=== PATIENT | male | born 1960 | race Two or more races ===

== ENCOUNTER 2016-12-13 20:53 | Emergency (ER) | payer SELFPAY ==
[~2016-12-13] VITALS: Ht 167.6 cm; Wt 89.4 kg
[~2016-12-13 20:53] MED LIST: CEPH250C PO
[2016-12-13] MEDS ORDERED: MECLIZINE HCL 12.5 MG TABLET. PO ONE (21:30)
[2016-12-13] MEDS ORDERED: METOCLOPRAMIDE HCL 10 MG/2 ML VIAL. IV ONE (21:30)
[2016-12-13 22:01] LABS: BASO # 0.1 x10^3/uL (0.0-0.2); BASO % 1 % (0-3); EOS % 13 % (0-3); HEMATOCRIT 42.5 % (39.0-53.0); HEMOGLOBIN 14.4 g/dL (13.0-17.5); LYMPH # 3.6 x10^3/uL (1.0-4.8); LYMPH % 32 % (24-48); MEAN CORPUSCULAR HEMOGLOBIN 31 pg (25-35); MEAN CORPUSCULAR HGB CONC 34 g/dL (31-37); MEAN CORPUSCULAR VOLUME 92 fL (79-100); MONO % 5 % (0-9); NEUT % 50 % (31-73); PLATELET COUNT 230 x10^3/uL (140-400); RED BLOOD COUNT 4.64 x10^6/uL (4.30-5.70); RED CELL DISTRIBUTION WIDTH 14.2 % (11.5-14.5); WHITE BLOOD COUNT 11.3 x10^3/uL (4.0-11.0)
[2016-12-13 22:25] LABS: CREATININE 1.3 mg/dL (0.7-1.3); GFR 56.7; POTASSIUM 4.2 mmol/L (3.5-5.1)
[2016-12-13 22:30] LABS: ALBUMIN 3.6 g/dL (3.4-5.0); ALBUMIN/GLOBULIN RATIO 0.8 (1.0-1.7); TOTAL BILIRUBIN 0.4 mg/dL (0.2-1.0)
[2016-12-13 22:31] LABS: % EOS 13 % (0-5); PLT ESTIMATE ADEQUATE (ADEQUATE)
--- NOTE | 2016-12-13 22:51 | PHYS DOC ---
Past Medical History Past Medical History: Cancer, Other Additional Past Medical Histor: RENAL CANCER Past Surgical History: Cholecystectomy, Other Additional Past Surgical Histo: L4-L5, R. KIDNEY REMOVED Alcohol Use: Rarely Drug Use: None Adult General Chief Complaint Chief Complaint: DIZZY/LIGHT HEADED HPI HPI Patient is a 56 year old male who presents with dizziness. Patient reports six- day history of spinning sensation which worsens with movements, intermittent. Reports today symptoms became much more severe at about 1500. Also experiencing ataxia with ambulation. Feels nauseated but no vomiting. Denies headache, chest pain, shortness of breath, extremity numbness or weakness. States he had a dental abscess at time of symptom onset, at that time was seen at the [facility] in [place] and given prescription for amoxicillin. He did have labs performed and underwent noncontrast CT of his head which she reports was normal; apparently at that time they thought his symptoms might be related to the dental infection. He has become increasingly symptomatic despite taking antibiotics. He has no previous history of similar symptoms. History of renal cancer s/p resection of a kidney. Does not currently have a PCP. Review of Systems Review of Systems Constitutional: Denies fever or chills Eyes: Denies change in visual acuity HENT: Denies nasal congestion or sore throat Respiratory: Denies cough or shortness of breath Cardiovascular: Denies chest pain or edema GI: Reports nausea, denies abdominal pain, vomiting Musculoskeletal: Denies back pain or joint pain Integument: Denies rash or skin lesions Neurologic: Reports vertigo. Denies headache, focal weakness or sensory changes Current Medications Current Medications Current Medications Medications (Trade) Dose Ordered Sig/Kole Start Time Stop Time Status Last Admin Dose Admin Meclizine HCl (Antivert) 12.5 mg 1X ONCE 12/13/16 21:30 12/13/16 21:31 DC 12/13/16 21:48 12.5 MG Metoclopramide HCl (Reglan) 10 mg 1X ONCE 12/13/16 21:30 12/13/16 21:31 DC 12/13/16 21:48 10 MG Allergies Allergies Allergies Coded Allergies Type Severity Reaction Last Updated Verified Iodinated Contrast Media - Oral and Allergy Severe ANAPHYLAXIS 12/13/16 Yes Physical Exam Physical Exam Constitutional: Obese, no acute distress, non-toxic appearance. HENT: Normocephalic, atraumatic, bilateral external ears normal, TMs normal bilaterally, oropharynx moist, nose normal. Eyes: PERRLA, EOMI, conjunctiva normal, no discharge. Neck: supple, no stridor. No carotid bruit, no meningismus Cardiovascular: RRR, no murmurs, no edema. Lungs & Thorax: LCTAB, no wheezing, no respiratory distress. Abdomen: soft, nontender, nondistended. Skin: Warm, dry, no erythema, no rash. Back: No tenderness. Extremities: No tenderness, no edema. Neurologic: Alert and oriented X 3, cranial nerves II through XII grossly intact , symmetric strength and sensation upper and lower extremities, no focal deficits noted. Psychologic: Affect normal, judgement normal, mood normal. Current Patient Data Vital Signs Vital Signs Date Time Temp Pulse Resp B/P (MAP) Pulse Ox O2 Delivery O2 Flow Rate FiO2 12/14/16 01:30 86 140/88 (105) 94 Room Air 12/13/16 21:10 98.1 16 98.1 Lab Values Laboratory Tests Test 12/13/16 21:52 White Blood Count 11.3 x10^3/uL (4.0-11.0) H Red Blood Count 4.64 x10^6/uL (4.30-5.70) Hemoglobin 14.4 g/dL (13.0-17.5) Hematocrit 42.5 % (39.0-53.0) Mean Corpuscular Volume 92 fL (79-100) Mean Corpuscular Hemoglobin 31 pg (25-35) Mean Corpuscular Hemoglobin Concent 34 g/dL (31-37) Red Cell Distribution Width 14.2 % (11.5-14.5) Platelet Count 230 x10^3/uL (140-400) Neutrophils (%) (Auto) 50 % (31-73) Lymphocytes (%) (Auto) 32 % (24-48) Monocytes (%) (Auto) 5 % (0-9) Eosinophils (%) (Auto) 13 % (0-3) H Basophils (%) (Auto) 1 % (0-3) Neutrophils # (Auto) 5.6 x10^3uL (1.8-7.7) Lymphocytes # (Auto) 3.6 x10^3/uL (1.0-4.8) Monocytes # (Auto) 0.6 x10^3/uL (0.0-1.1) Eosinophils # (Auto) 1.4 x10^3/uL (0.0-0.7) H Basophils # (Auto) 0.1 x10^3/uL (0.0-0.2) Segmented Neutrophils % 56 % (35-66) Lymphocytes % 27 % (24-48) Monocytes % 4 % (0-10) Eosinophils % 13 % (0-5) H Platelet Estimate Adequate (ADEQUATE) Sodium Level 139 mmol/L (136-145) Potassium Level 4.2 mmol/L (3.5-5.1) Chloride Level 104 mmol/L (98-107) Carbon Dioxide Level 26 mmol/L (21-32) Anion Gap 9 (6-14) Blood Urea Nitrogen 19 mg/dL (8-26) Creatinine 1.3 mg/dL (0.7-1.3) Estimated GFR (Cockcroft-Gault) 56.7 BUN/Creatinine Ratio 15 (6-20) Glucose Level 136 mg/dL (70-99) H Calcium Level 9.0 mg/dL (8.5-10.1) Total Bilirubin 0.4 mg/dL (0.2-1.0) Aspartate Amino Transferase (AST) 20 U/L (15-37) Alanine Aminotransferase (ALT) 31 U/L (16-63) Alkaline Phosphatase 102 U/L (46-116) Troponin I Quantitative < 0.017 ng/mL (0.000-0.055) Total Protein 8.0 g/dL (6.4-8.2) Albumin 3.6 g/dL (3.4-5.0) Albumin/Globulin Ratio 0.8 (1.0-1.7) L Laboratory Tests 12/13/16 21:52 Laboratory Tests 12/13/16 21:52 EKG EKG Interpreted by me: Normal sinus rhythm rate 98, no acute ST or T wave changes, normal intervals, no ectopy. [] Radiology/Procedures Radiology/Procedures PROCEDURE: DOPPLER CAROTID BILAT Bilateral carotid Doppler: Reason for examination: Vertigo. The right and left carotid arterial systems were evaluated with grayscale imaging, color-flow imaging and spectral analysis. There is a tortuous left internal and external carotid artery. There is some minimal plaque present bilaterally at the carotid bulb. There is no evidence of hemodynamically significant stenosis. Vertebral flow bilaterally is antegrade. Flow velocities are as follows: Right Left CCA peak 84 67 ICA peak 92 86 ICA/CCA ratio 1.1 1.2 ECA peak 87 36 IMPRESSION: Minimal plaque at the carotid bulbs bilaterally. No evidence of a hemodynamically significant stenosis. Antegrade vertebral flow bilaterally. Electronically signed by: Elham Liz MD (12/14/2016 1:26 AM) DICTATED and SIGNED BY: ELHAM LIZ MD DATE: 12/14/16 012 [] Course & Med Decision Making Course & Med Decision Making Pertinent Labs and Imaging studies reviewed. (See chart for details) The patient presents with vertigo. Also expressing ataxia. Neurologically intact here. Requested records from [facility] which were not faxed during his visit. She preferred not to repeat head CT is just been performed at the other hospital. By his verbal report was normal. As this was repeat visit for vertigo I did want to obtain imaging to rule out abnormality of the posterior circulation. Unfortunately this and the remainder of his visit was very complicated. He has anaphylaxis to iodine contrast and not able to receive even with pretreatment. This prevented us from obtaining CTA of the head and neck. Planned to perform MRI but unfortunately he has medical particles in his eye. Radiologist did not recommend proceeding with MRI. I discussed with the on-call radiologist to recommended the best substitute would be carotid Dopplers. This was obtained here with results as above. There was a significant delay in obtaining the study and read. The patient became frustrated with the obviously much longer wait than anticipated. We discussed findings and further recommendations at length. Overall he is well-appearing, generally low suspicion for serious disease process but as his symptoms are persistent I do think it would be beneficial to evaluate for posterior circulation stroke. This is not possible to complete in the setting due to limitations and imaging. He was offered admission to the hospital for neurology consultation which he declined. He prefers to go home and follow-up as an outpatient. He understands that today's evaluation was incomplete and there is possibility of serious disease process causing his symptoms. Gave prescription for meclizine and instructed to follow up with primary care within 2-3 days, neurology within one week. Return to the emergency department for focal neurologic deficit, severe chest pain or shortness of breath, any otherwise worsening condition. Discharged home in stable condition. [] Dragon Disclaimer Dragon Disclaimer This electronic medical record was generated, in whole or in part, using a voice recognition dictation system. Departure Departure Impression: Primary Impression: Vertigo Disposition: 01 HOME, SELF-CARE Condition: STABLE Referrals: NO PCP (PCP) ASHLEY TA MD, WILLIAM R MD Patient Instructions: Vertigo, [id number] Additional Instructions: You seen in the emergency department today for vertigo or spinning dizzy sensation. Tests here did not show a serious cause of symptoms. As we discussed at length, it would be ideal to do additional imaging but the metal in your eye and your contrast allergy make it difficult to do a good imaging study. Take meclizine as needed for vertigo. Follow-up within 2-[address] Beasley in the primary care clinic, and make an appointment with Dr. Ta in the neurology clinic. Return to the emergency department for severe headache, severe chest pain, difficulty moving arms or legs, any otherwise worsening condition. Scripts Meclizine Hcl (MECLIZINE HCL) 12.5 Mg Tablet 1 TAB PO TID Y for vertigo, #15 TAB Prov: WADE BASSETT MD 12/14/16 WADE BASSETT MD Dec 13, 2016 22:51
--- NOTE | 2016-12-14 01:29 | RAD ---
Bilateral carotid Doppler: Reason for examination: Vertigo. The right and left carotid arterial systems were evaluated with grayscale imaging, color-flow imaging and spectral analysis. There is a tortuous left internal and external carotid artery. There is some minimal plaque present bilaterally at the carotid bulb. There is no evidence of hemodynamically significant stenosis. Vertebral flow bilaterally is antegrade. Flow velocities are as follows: Right Left CCA peak 84 67 ICA peak 92 86 ICA/CCA ratio 1.1 1.2 ECA peak 87 36 IMPRESSION: Minimal plaque at the carotid bulbs bilaterally. No evidence of a hemodynamically significant stenosis. Antegrade vertebral flow bilaterally. Electronically signed by: Elham Downing MD (12/14/2016 1:26 AM)
[2016-12-14 01:30] VITALS: BP 140/88
[2016-12-14] MEDS ORDERED: MECL12.52 PO (01:36)
--- NOTE | 2016-12-14 06:15 | EKG ---
[facility] [address] [place] [address] Test Date: 2016-12-13 Test Time: 21:02:46 Pat Name: MARIETTA VAUGHAN Department: Room: Gender: M Workgroup Leader: : 1960 Requested By: WADE BASSETT Order Number: [id number] Reading MD: Hortencia Guaman Measurements Intervals [place] Rate: 98 P: 38 ME: 174 QRS: 78 QRSD: 92 T: 51 QT: 316 QTc: 405 Interpretive Statements SINUS RHYTHM INCOMPLETE RIGHT BUNDLE BRANCH BLOCK RI6.01 Unconfirmed report No previous ECG available for comparison Electronically Signed On 12-17-2016 22:14:34 CDT by Hortencia Guaman
== END 2016-12-14 01:48 | disposition home or self-care (01) ==
LOC: ER 20:53
DX: R42 Dizziness and giddiness (principal); R27.0 Ataxia, unspecified; R11.0 Nausea; E66.9 Obesity, unspecified; Z68.31 Body mass index [BMI] 31.0-31.9, adult; Z90.49 Acquired absence of other specified parts of digestive tract; Z90.5 Acquired absence of kidney; Z91.041 Radiographic dye allergy status
CPT/HCPCS: 36415; 80053; 84484; 85007; 85027; 93005; 93880; 96374; 99285; J2765; J8597

== ENCOUNTER → 2018-05-23 | Outpatient (CLI) | payer OTHER ==
[~2018-05-23] MED LIST changes: +ASPI81TA50 PO; +MECL12.52 PO
--- NOTE | 2018-05-24 01:41 | PAIN ---
DATE OF SERVICE: 05/23/2018 INITIAL CONSULTATION FOR PAIN CLINIC CHIEF COMPLAINT: Right lower quadrant abdominal pain. HISTORY OF PRESENT ILLNESS: This is a 58-year-old male who presents with a history of pain since about 2014 after cancer surgery for a renal cell carcinoma by his report. He started having pain about 3 years ago, worse over the past year or so in the right lower quadrant. The patient has had multiple workups, ultrasounds, CTs by his report without significant findings as far as explaining the pain, but still significant pain in the right lower quadrant. They are constantly some days worse than others, sometimes for no good reason, sometimes worse with activity and sometimes not. The patient reports it is very hard to predict. The patient awakens from sleep at least twice a night, it does not affect his bowel or bladder control or his ability to walk. Again the patient has had no previous treatments for it except for diagnostic studies. The patient rates his disability rating from 0 to 10, 10 being the worst as a 9 with family and home responsibilities and occupation, 8 with recreation and social activities, 7 with sexual behavior and self-care activities and 6 with life support activities. The patient had a CT scan of the abdomen as well as the spine showing no acute findings, the reasons for the patient's symptoms are not appreciated, post-cholecystectomy changes demonstrated. PAST MEDICAL HISTORY: Significant for hearing loss, arthritis, previous renal cell tumor with surgery in 2007 and 2014. Other surgeries include cholecystectomy, renal cyst, nephrectomy and hernia repair. CURRENT MEDICATIONS: Include only daily baby aspirin. ALLERGIES: The patient reports no known drug allergies. FAMILY HISTORY: Significant for diabetes and heart disease. SOCIAL HISTORY: The patient drinks about 2 beers a week on average alcohol. He does smoke and has for over 40 years, less than a pack a day, does not use any illegal, illicit or recreational drugs. He is , lives with his spouse locally in [place], [place]. REVIEW OF SYSTEMS: The patient's review of systems is positive for those items mentioned in the history of present illness. All systems reviewed and otherwise negative. It is complete, full and well documented on the patient's chart. PHYSICAL EXAMINATION: VITAL SIGNS: Today, blood pressure is 138/99, pulse is 71, respirations are 18, temperature 98.0 degrees Fahrenheit, height is 5 feet 7 inches and weight is 206 pounds. GENERAL: The patient is awake, alert, oriented, appropriate, very pleasant demeanor. HEENT: Head shows normocephalic and atraumatic. Extraocular movements are intact and symmetrical. Oral cavity: Mucous membranes are moist and pink. Dentition is intact. NECK: Shows anterior throat is supple without palpable lymphadenopathy noted. Swallow reflex is symmetrical. CHEST: Shows normal on inspection. Breath sounds are clear to auscultation bilaterally. HEART: Shows S1 and S2 clear. No murmurs auscultated. ABDOMEN: Soft, nontender on the left, nondistended. Right side shows some moderate tenderness only in approximately the nipple line and slightly posterior to this, but not to the mid axillary line with some tenderness in the low abdominal distribution as well. This is true going medially to about 10 cm from midline and about 10 cm superior inferior in this area. It is not following a specific dermatomal distribution, would be at around the T9 through T11 distribution in this region of the abdomen. The patient shows well-healed surgical scars on the abdomen. Bowel sounds are present in all 4 quadrants. No rebound is demonstrated. No guarding demonstrated. The patient reports significant tenderness with moderate palpation in the right lower quadrant region as described. Left side is negative as is the supragastric and hypogastric region. Again, no hernias are appreciated with bearing down. BACK: The patient's back shows the spine grossly in the midline. Normal appearing thoracic kyphosis and minor flattening of the lumbar lordotic curvature. Lumbar paraspinous muscle shows mild tenderness with palpation, but is symmetrical without radiation, without atrophy or hypertrophy. The patient has good rotational motion of the lumbar spine both laterally as well as extension and flexion. EXTREMITIES: The patient's lower extremities show deep tendon reflexes 2+ in the patellar and 1+ tendo calcaneus tendons. Motor exam is strong with 5/5 dorsiflexion, extension, quadriceps and hamstring flexion. Peripheral pulses are 1+ posterior tibia. No peripheral edema is noted bilaterally. SKIN: The patient's skin shows warm and dry and good turgor. No edema. No sores, rashes or bruising. Abdominal scars as noted. IMPRESSION: 1. This is a 58-year-old male with approximately 3-year history of abdominal pain, right lower quadrant. 2. CT scan as noted of the abdomen. 3. History of renal cell carcinoma, status post nephrectomy. 4. Arthritis. PLAN: Options were discussed with the patient including conservative medical management, physical therapy and interventional techniques. He would like to pursue a most conservative path at this time. We discussed a Medrol Dosepak, which we will try as this has not been tried with a steroid taper pack in the past to see if this may decrease any inflammatory component of the abdominal pain. We also discussed intraabdominal wall peripheral abdominal nerve blocks and the patient is interested in this, but would like to stay away from procedures if possible. We will try the Medrol Dosepak first. If not significantly improved, we will have the patient return in approximately 2 weeks and plan on abdominal wall peripheral nerve blocks at that time if not significantly improved. The patient understands and agrees, was given instruction as well as side effects to be aware of with the medication. We will follow up in approximately 2 weeks as scheduled. CORNELIA URIARTE MD DR: ELISEO/kalpana JOB#: [id number] / [id number]
== END | disposition home or self-care (01) ==
LOC: PNCL 08:23
PROVIDERS: ATTEND Anesthesiology
DX: R10.31 Right lower quadrant pain (principal); M19.90 Unspecified osteoarthritis, unspecified site; Z90.5 Acquired absence of kidney; Z85.528 Personal history of other malignant neoplasm of kidney; Z90.49 Acquired absence of other specified parts of digestive tract
CPT/HCPCS: 99214